=== PATIENT | female | born 1980 | race African-American/Black ===

== ENCOUNTER 2020-02-13 15:05 | Outpatient (REF) | payer SELFPAY | END 2020-02-13 15:06 | disposition home or self-care (01) | LOC: HO.LAB 15:05 | PROVIDERS: Visit Provider Internal Medicine | DX: Z20.828 Contact with and (suspected) exposure to other viral communicable diseases (principal) | CPT/HCPCS: C9803; U0003 ==

== ENCOUNTER 2025-01-12 12:31 | Emergency (ER) | payer SELFPAY ==
[2025-01-12] VITALS (16 sets, daily range): BP systolic 101–143; BP diastolic 39–67; PULSE 79–112; RESP 16–20; TEMP 36.8–37; O2SAT 98–100; BMI 33.1
--- NOTE | ~2025-01-12 | US_ITS ---
CLINICAL HISTORY: vaginal bleeding, ? fibroids? US pelvis transabdominal and transvaginal with Doppler Comparison: None provided Findings: Transabdominal scanning performed for overall anatomy. Transvaginal scanning performed for additional detail. Uterus is 12 cm length. 3.9 x 3.8 x 4 cm fibroid. Multiple additional fibroids. Possible endometrium seen 6.0 mm thickness. Right ovary 4.7 x 2.7 x 2.7 cm. 7 x 13 mm complex cystic lesion. Left ovary 2.8 x 1.8 x 1.6 cm. Normal color Doppler with arterial/venous spectral tracing of both ovaries. No free fluid. IMPRESSION: Multiple uterine fibroids. Complex lesion of the right ovary. Ultrasound follow-up in 6 weeks is recommended. This document has been electronically signed by: Thomas Aden MD on 01/12/2025 19:04:10
--- NOTE | 2025-01-12 12:43 | ECG_ITS ---
Test Reason : syncope Blood Pressure : */* mmHG Vent. Rate : 103 BPM Atrial Rate : 103 BPM P-R Int : 116 ms QRS Dur : 74 ms QT Int : 346 ms P-R-T Axes : 63 51 16 degrees QTcB Int : 453 ms Sinus tachycardia Otherwise normal ECG No previous ECGs available Referred By: Chacorta Powell Electronically Signed By: PRADEEP KOTHARI
--- NOTE | 2025-01-12 12:44 | ED_ITS ---
HPI - General Adult General Chief complaint: Syncope Stated complaint: passed out @ work Time Seen by Provider: 01/12/25 13:38 History of Present Illness ED Provider: Cary LAGUNA narrative: The patient is a 44-year-old woman who says that she has a history of problems with vaginal bleeding. She says that she has had surgery for fibroids in the past, approximately 10 years ago. She says that she has required blood transfusions in the past. The patient says that she typically has heavy vaginal bleeding during menses. She says that she started to have her current menses 3 days ago on Thursday. She says that she was using 1 pad every 2 hours for the last couple of days.. Today she was at work. 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 She was in front of her students when she started to feel lightheaded and then felt so faint that she fell forward and slightly to the right side. She thinks that she struck her head when she went down but she does not think that she ever fully passed out. Other staff members were in the room and they helped her up and got her into a wheelchair. She was taken to the nurse's office at the school and her parents were called. She was given a dose of ibuprofen in the nursing office. The patient's parents then drove her to the emergency room. She has no significant headache. No significant neck pain. No chest pain or shortness of breath. No abdominal pain. There has been no vomiting.\ The patient last had a similar problem in May of 2024. She was seen on 06/14/2024 at [facility]'s Emergency room. At that time her hemoglobin was 4.1. She was admitted to the hospital and received transfusions. Related Data Allergies Allergy/AdvReac Type Severity Reaction Status Date / Time morphine Allergy Unknown Verified 01/12/25 12:42 Physical Exam ED Vital Signs: Vital Signs - 24 hr 01/12/25 12:33 01/12/25 14:06 01/12/25 14:59 Temperature 98.4 F Pulse Rate 105 H 91 107 H Respiratory Rate 18 19 16 Blood Pressure 115/49 L 101/39 L 112/49 L Pulse Oximetry 100 100 98 Oxygen Delivery Method Room Air Room Air Room Air 01/12/25 16:22 01/12/25 17:04 01/12/25 17:08 Temperature 98.4 F 98.4 F 98.4 F Pulse Rate 112 H 109 H 104 H Respiratory Rate 20 18 17 Blood Pressure 123/57 L 123/51 L 110/48 L Pulse Oximetry 98 98 Oxygen Delivery Method Room Air Room Air 01/12/25 17:25 01/12/25 17:26 01/12/25 19:08 Temperature 98.4 F Pulse Rate 99 79 Respiratory Rate 20 18 Blood Pressure 109/57 L 109/67 Pulse Oximetry 98 100 Oxygen Delivery Method Room Air Room Air 01/12/25 19:22 01/12/25 19:29 01/12/25 19:46 Temperature 98.4 F 98.4 F 98.6 F Pulse Rate 79 87 95 Respiratory Rate 18 16 20 Blood Pressure 109/67 142/65 H 143/58 H Pulse Oximetry Oxygen Delivery Method 01/12/25 19:49 01/12/25 19:51 01/12/25 19:56 Temperature 98.6 F 98.6 F 98.2 F Pulse Rate 95 95 99 Respiratory Rate 16 16 20 Blood Pressure 143/58 H 143/58 H 133/60 Pulse Oximetry Oxygen Delivery Method 01/12/25 19:56 Temperature 98.2 F Pulse Rate 99 Respiratory Rate 20 Blood Pressure 133/60 Pulse Oximetry 100 Oxygen Delivery Method Room Air BMI result Body Mass Index 33.1 Const Other: The patient is a 44-year-old woman who was awake and alert, pleasant and cooperative. She looks somewhat pale and weak but does not seem in acute distress. She does not seem in pain or respiratory difficulty. No diaphoresis. HENMT Other: The face is symmetrical. ?Mucous membranes moist. Eyes Other: Pupils are round equal, conjunctivae are very pale Neck Neck: Yes normal visual inspection and Yes full ROM Resp Effort & Inspection: normal respiratory effort Auscultation: clear to auscultation bilaterally Cardio Rate: regular rate Rhythm: regular rhythm Heart sounds: S1 normal heart sound present and S2 normal heart sound present GI Other: Abdomen is soft and nontender Other: Pelvic exam revealed some blood at the introitus. When I introduced the speculum there was a small pool of blood in the vaginal vault. I swabbed out the blood. I was not able to identify what I felt was a normal appearing cervix. I then performed a bimanual exam and I felt that the patient has a very abnormally contoured uterus. There seemed to be a large roundish mass that I suspect is a large fibroid. I then reintroduce the speculum and there was some additional blood which I swabbed out. I observed for about a minute and there was only some minimal recollection of the blood that seemed to be coming more generally from an excoriated uterus than from a specific spot I could identify. Skin Other: Skin is dry and unremarkable. The skin of the palms is very pale. Neuro Other: The patient is awake and alert with a normal mental status. Cranial nerves are grossly intact. She has symmetrical strength and tone in her extremities. Sensation is intact. No focal deficits. Extrem Other: There is no calf swelling or tenderness. No asymmetry. No peripheral edema. Course Course Course Narrative: RME: 44 year female history of fibroids and heavy bleeding presents to ED for syncopal episodes. Patient is present states she is on a menstruation and she has heavy bleeding and today she passed out. Patient states usually when this happens she has to get blood transfusion. Patient states feeling weeks. Skin is palliative unusual. Labs EKG type and screen ordered Medications Administered Discontinued Medications Generic Name Dose Route Start Last Admin Trade Name Freq PRN Reason Stop Dose Admin Tranexamic Acid 1,000 mg/ 60 mls @ 360 mls/hr 01/12/25 13:43 01/12/25 14:19 Sodium Chloride IV 01/12/25 13:52 Infused ONCE ONE Infusion Medical Decision Making Medical Decision Making [facility] Narrative: The patient is a 44-year-old woman who comes to the emergency room after a syncopal episode. I believe the syncopal episode was the result of severe anemia. Her hemoglobin today is 2.9. I believe her severe anemia has result of vaginal bleeding that occurs when she has her periods. She describes a long history of extremely heavy vaginal bleeding. On this occasion her menses began 3 days ago on Thursday. She says that she was changing a pad every 1-2 hours for the last few days. She then had a syncopal episode at work today. She was last hospitalized for a similar event in May of this year (May 2024) and was transfused 2 units at [facility]. She was also hospitalized at [facility] in August of last year (August 2023). At that time she received 3 units of blood. Here the patient was given 1 g of IV TXA empirically. 3 units of packed red blood cells were ordered. There was a delay in initiating any transfusion because the patient has a positive antibody screen and the blood bank took a long time getting appropriate blood. Fortunately the patient remained hemodynamically stable despite her severe anemia. This would argue that the patient's anemia is not remarkably acute. Unfortunately we do not have middle stitcher on-call this evening. I contacted [facility]. They are closed for transfers because of capacity. I have therefore reached out to the [facility] transfer hotline for possible transfer to [facility] in [place]. Additionally we have obtained a pelvic ultrasound. 18:57: I contacted [facility] but they are closed a transfers as well. I will try [facility]. 19:09 [facility] replied and the patient has been accepted for transfer at [facility]. So far 1 unit of packed red blood cells has been transfused and the patient is feeling somewhat better. She has remained hemodynamically stable. We will transfer the patient with transfusions continuing. The pelvic ultrasound has come back. This shows the following: US pelvis transabdominal and transvaginal with Doppler Comparison: None provided Findings: Transabdominal scanning performed for overall anatomy. Transvaginal scanning performed for additional detail. Uterus is 12 cm length. 3.9 x 3.8 x 4 cm fibroid. Multiple additional fibroids. Possible endometrium seen 6.0 mm thickness. Right ovary 4.7 x 2.7 x 2.7 cm. 7 x 13 mm complex cystic lesion. Left ovary 2.8 x 1.8 x 1.6 cm. Normal color Doppler with arterial/venous spectral tracing of both ovaries. No free fluid. IMPRESSION: Multiple uterine fibroids. Complex lesion of the right ovary. Ultrasound follow-up in 6 weeks is recommended. 19:19 the patient has a platelet count of 26,000. This was not a finding I appreciated initially and it is surprising because when the patient was last transfused in May of 2024 she had thrombocytosis with platelet counts between 600-900. Addendum: I contacted the blood bank here at [place] regarding the patient is a transfer and the difficulty in cross matching the patient. I was advised to add the following language: The patient has a history of multiple antibodies, anti-E, anti Jka and inconclusive, AMY testing was performed. Lab Data 01/12/25 13:00 01/12/25 13:00 Labs: Lab Results 01/12/25 Range/Units 13:00 WBC 6.5 (4.8-10.8) X10*3/uL RBC 1.86 L (4.20-5.50) X10*6/uL Hgb 2.9 L* (12.0-16.0) g/dl Hct 11.9 L* (37.0-47.0) % MCV 64.0 L (80.0-98.0) fL MCH 15.6 L (27.0-33.0) pg MCHC 24.4 L (31.0-35.0) g/dl RDW 34.5 H (11.0-16.0) % Plt Count 26 L (160-400) X10*3/uL MPV Not Reportable Immature Gran % (Auto) 0.5 H (0.0-0.4) % Neut % (Auto) 78.2 H (45-73) % Lymph % (Auto) 16.2 L (20-40) % [place] % (Auto) 4.6 (2-11) % Eos % (Auto) 0.3 (0-4) % Baso % (Auto) 0.2 (0-2) % Lymph # (Auto) 1.1 L (1.2-4.9) X10*3/uL [place] # (Auto) 0.3 (0.1-1.2) X10*3/uL Eos # (Auto) 0.0 (0.0-0.4) X10*3/uL Baso # (Auto) 0.0 (0.0-0.2) X10*3/uL Abs Immat Gran (auto) 0.03 (0.00-0.03) X10*3/uL Absolute Neuts (auto) 5.1 (2.0-8.3) x10*3/uL Absolute Nucleated RBC 0.020 H (0.0-0.012) X10*3/uL Nucleated RBC % (auto) 0.3 H (0.0-0.2) /100WBC Smear Tech's Comments VERIFIED Smear Path Review SEE NOTE PT 13.4 (11.2-13.5) SEC INR 1.1 (0.9-1.1) APTT 23.8 L (26.7-34.1) SEC Sodium 141 (135-145) mmol/L Potassium 4.0 (3.3-5.1) mmol/L Chloride 113 H (96-108) mmol/L Carbon Dioxide 19 L (22-29) mmol/L Anion Gap 13 (12-20) BUN 9 (9-16) mg/dL Creatinine 0.94 (0.5-1.4) mg/dL Estim Creat Clear Calc 72.1 Estimated GFR > 60 Random Glucose 112 (60-115) mg/dL Calcium 8.8 (8.4-10.2) mg/dL Total Bilirubin 0.5 (0.0-1.0) mg/dL AST 13 (5-31) U/L ALT 12 (0-31) U/L Alkaline Phosphatase 51 (39-117) U/L Troponin I High Sens < 2.7 (<3.5-17.0) ng/L Total Protein 6.8 (6.5-8.0) g/dL Albumin 4.3 (3.5-5.0) g/dL Beta HCG, Quant < 2 mIU/mL Blood Type B Positive Antibody Screen POSITIVE Antibody Identification Inconclusive NICHOLAS, Polyspecific NEGATIVE Positive NICHOLAS Work-up Not Reportable Crossmatch See Detail Enhanced Crossmatch See Detail Blood Bank Comment Technical Critical Care Time Critical Care Time Critical Care Time: Yes Total Critical Care Time: 35 Attestation: The patient was critically ill with a high probability of imminent or life- threatening deterioration. ?I spent greater than 30 minutes of discontinuous time evaluating the patient, delivering critical care at the bedside, discussing evaluating data with consultants. ?Critical care time does not include time spent performing separately billable procedures or teaching. ?Time spent performing critical care with 35 minutes. Discharge Plan Discharge Clinical Impression: Severe anemia, Thrombocytopenia, Menorrhagia, Uterine fibroid Patient Disposition: Xfer Acute Care Hospital Transfer Details: [facility] Interventions: Acute Care Transfer Worksheet (ED) Last Done: 01/12/25 20:16 Discharge Date/Time: 01/12/25 20:17 Print Language: Martiniquais
[2025-01-12 13:22] LABS: INTERNATIONAL NORM RATIO 1.1 (0.9-1.1); Prothrombin Time 13.4 SEC (11.2-13.5)
[2025-01-12 13:24] LABS: Imm Gran Abs Auto 0.03 X10*3/uL (0.00-0.03); Imm Gran Pct Auto 0.5 % (0.0-0.4); Lymphocytes Absolute Auto 1.1 X10*3/uL (1.2-4.9); MANUAL DIFF FLAG SCAN; Mean Corpuscular HGB Conc 24.4 g/dl (31.0-35.0); Mean Corpuscular Hemoglobin 15.6 pg (27.0-33.0); NRBC Abs Auto 0.020 X10*3/uL (0.0-0.012); NRBC Pct Auto 0.3 /100WBC (0.0-0.2); Red Blood Count 1.86 X10*6/uL (4.20-5.50); SCAN SMEAR FLAG 1; White Blood Count 6.5 X10*3/uL (4.8-10.8)
[2025-01-12 13:28] LABS: Mean Corpuscular Volume 64.0 fL (80.0-98.0); PLT ABN DIST 1; Partial Thromboplastin Time 23.8 SEC (26.7-34.1)
[2025-01-12 13:33] LABS: Hemoglobin 2.9 g/dl (12.0-16.0)
[2025-01-12 13:37] LABS: Alanine Aminotransferase 12 U/L (0-31); Albumin Level 4.3 g/dL (3.5-5.0); Alkaline Phosphatase 51 U/L (39-117); Anion Gap 13 (12-20); Aspartate Amino Transferase 13 U/L (5-31); Blood Urea Nitrogen 9 mg/dL (9-16); Calcium 8.8 mg/dL (8.4-10.2); Carbon Dioxide 19 mmol/L (22-29); Chloride 113 mmol/L (96-108); Creatinine Clr Calc Pharmacy 72.1; Estimated Glomerular Filt Rate > 60; Potassium 4.0 mmol/L (3.3-5.1); Sodium 141 mmol/L (135-145); Total Protein 6.8 g/dL (6.5-8.0)
[2025-01-12 13:45] LABS: Troponin-I High Sensitivity < 2.7 ng/L (<3.5-17.0)
[2025-01-12 13:51] LABS: Platelet Count 26 X10*3/uL (160-400)
[2025-01-12] MEDS: Tranexamic Acid 1,000 MG in 0.9 % Sodium Chloride 50 ML 360 MG IV (14:05)
--- NOTE | 2025-01-12 19:56 | PC.NURSE ---
Addendum entered by Angelita Romano RN 01/12/25 19:58: patient had no signs or symptoms of allergic reaction to blood products. Original Note: patient being transferred to [facility]. provider decided to rapidly infuse last two units of blood. blood successfully transfused and patient transferred by ems to facility. VS RAJI.
--- NOTE | 2025-01-12 20:14 | PC.NURSE ---
attempted to call [facility] for nurse to nurse report twice. fist time was placed on hold for a period of time and second time there was no answer. EMS aware and [facility] have questions.
[2025-01-13 10:44] LABS: Hematocrit 11.9 % (37.0-47.0)
== END 2025-01-12 20:17 | disposition short-term general hospital (02) ==
PROVIDERS: Physician Assistant; Emergency Provider Emergency Medicine
DX: D64.9 Anemia, unspecified (principal); N92.0 Excessive and frequent menstruation with regular cycle; D25.9 Leiomyoma of uterus, unspecified; D69.6 Thrombocytopenia, unspecified; R55 Syncope and collapse
CPT/HCPCS: 36415; 36430; 76830; 76856; 80053; 84484; 84702; 85025; 85610; 85730; 86850; 86870; 86880; 86900; 86901; 86902; 86920; 86921; 93005; 96374; 99285; J2151; P9016

== ENCOUNTER → 2025-01-12 12:43 | Outpatient (BNV) | payer SELFPAY | PROVIDERS: Emergency Provider Emergency Medicine; Visit Provider Internal Medicine | DX: R00.0 Tachycardia, unspecified (principal) | CPT/HCPCS: 93010 ==

== ENCOUNTER → 2025-01-12 17:14 | Outpatient (BNV) | payer SELFPAY | PROVIDERS: Emergency Provider Emergency Medicine; Visit Provider Nuclear Medicine | DX: N93.9 Abnormal uterine and vaginal bleeding, unspecified (principal) | CPT/HCPCS: 76830; 76856 ==